=== PATIENT | female | born 1960 | race Hispanic/Latino ===

== ENCOUNTER → 2022-03-07 | Outpatient (CLI) | payer BC ==
[2022-03-07 13:04] LABS: CREATININE 0.8 mg/dL (0.5-1.5); POTASSIUM 3.7 mmol/L (3.5-5.1)
== END | disposition home or self-care (01) ==
LOC: LAB 11:55
PROVIDERS: ATTEND Internal Medicine Cardiovascular Disease
DX: I95.2 Hypotension due to drugs (principal)
CPT/HCPCS: 36415; 80048

== ENCOUNTER → 2023-05-12 | Outpatient (CLI) | payer BC ==
[2023-05-12 15:30] LABS: CREATININE 0.6 mg/dL (0.5-1.5)
== END | disposition home or self-care (01) ==
LOC: LAB 13:30
PROVIDERS: ATTEND Internal Medicine Cardiovascular Disease
DX: I10 Essential (primary) hypertension (principal)
CPT/HCPCS: 36415; 80048

== ENCOUNTER 2024-10-09 06:32 | Observation (INO) | payer BC ==
[2024-10-04 11:59] LABS: BASOPHILS # (AUTO) 0.04 K/uL (0.00-0.20); BASOPHILS % (AUTO) 0.7 % (0.0-5.0); EOSINOPHILS # (AUTO) 0.14 K/uL (0.00-0.70); EOSINOPHILS % (AUTO) 2.5 % (0.0-8.0); HEMATOCRIT 37.9 % (36-48); IMMATURE GRANULOCYTE ABSOLUTE 0.01 K/uL (0-1); LYMPHOCYTES # (AUTO) 2.3 K/uL (1.0-4.8); LYMPHOCYTES % (AUTO) 41.1 % (21.0-51.0); MEAN CORPUSCULAR HEMOGLOBIN 33.2 pg (27.0-33.0); MEAN CORPUSCULAR HGB CONC 33.8 g/dL (32.0-36.0); MEAN CORPUSCULAR VOLUME 98.2 fL (79-99); MONOCYTES # (AUTO) 0.3 K/uL (0.1-1.0); MONOCYTES % (AUTO) 6.1 % (3.0-13.0); NEUTROPHILS # (AUTO) 2.7 K/uL (1.8-7.7); NEUTROPHILS % (AUTO) 49.4 % (40.0-77.0); PLATELET COUNT (AUTO) 233 K/uL (130-400); RED BLOOD CELL COUNT(AUTO) 3.86 MIL/uL (4.00-5.50); WHITE BLOOD COUNT (AUTO) 5.6 K/uL (4.8-10.8)
[2024-10-04 12:02] VITALS: BP 162/74; PULSE 58; RESP 18; TEMP 97.7
[2024-10-04 12:11] LABS: INR 1.17 (0.85-1.15); PROTHROMBIN TIME 12.2 SEC (9.6-11.6)
[2024-10-04 12:12] LABS: PARTIAL THROMBOPLASTIN TIME 27.9 SEC (26.3-35.5)
[2024-10-04 12:15] LABS: ALBUMIN 3.8 g/dL (3.5-5.0); CREATININE 0.7 mg/dL (0.5-1.0); POTASSIUM 4.5 mmol/L (3.5-5.1)
--- NOTE | 2024-10-04 12:30 | NUR ---
RE: IS INITIAL IS INITIAL INSTRUCTIONS PROVIDED TO PATIENT BY CAYDEN NORMAN DURING PREOP.
[2024-10-04 12:51] LABS: APPEARANCE,URINE CLEAR (CLEAR); BILIRUBIN,URINE NEGATIVE (NEGATIVE); COLOR,URINE YELLOW (YELLOW); GLUCOSE, URINE (UA) NEGATIVE (NEGATIVE); KETONES,URINE 5 mg/dL (NEGATIVE); LEUKOCYTE ESTERASE ,URINE 250 Leu/uL (NEGATIVE); NITRATE,URINE NEGATIVE (NEGATIVE); PH,URINE 6.5 (5.0-8.0); PROTEIN,URINE 30 mg/dL (NEGATIVE)
[2024-10-04 12:54] LABS: ADD UA MICROSCOPIC YES
[2024-10-04 13:03] LABS: BACTERIA,URINE RARE /HPF (None Seen); MUCUS,URINE MOD LPF (None Seen); SQUAMOUS EPITHELIAL CELL,UR RARE /HPF (0-2)
--- NOTE | 2024-10-07 09:40 | NUR ---
RE: LABS REPORTED UA/URINE CX RESULTS TO DR FARLEY, NO NEW ORDERS RECEIVED.
[2024-10-09] VITALS (26 sets, daily range): BP systolic 95–142; BP diastolic 53–80; PULSE 49–67; RESP 15–19; TEMP 97.6–99.4; O2SAT 98–99
[~2024-10-09] VITALS: Ht 157.5 cm; Wt 93.9 kg
[~2024-10-09 06:32] MED LIST: ACET-2079 PO; AMIL5TAB8 PO; AMLO-257 PO; DICL75TA5 PO; DULO60CA64 PO; ERGO500093 PO; LEVO100C5 PO; LORA0.5T83 PO; PIND5 PO; PRAV40TA3 PO
[2024-10-09] MEDS ORDERED: ROPivacaine 0.5% 5MG/ML 30ML ONE (07:01)
[2024-10-09] MEDS ORDERED: ketaMINE 50MG/ML SYRINGE 50 MG/ML DISP.SYRIN ONE (07:02)
[2024-10-09] MEDS ORDERED: FENTanyl CITRate PF 50 MCG/1 ML 2ML VIAL ONE (07:24)
[2024-10-09] MEDS ORDERED: proPOFol 10 MG/ML 20ML VIAL IV ONE (07:24)
[2024-10-09] MEDS ORDERED: LIDOCAINE PF 100MG/5ML (2%) SYRINGE 5ML ONE (07:24)
[2024-10-09] MEDS ORDERED: rocuRONium bROMide 10MG/1ML 5ML VL ONE ×2 (07:24→09:52)
[2024-10-09] MEDS: LACTATED RINGERS 1000ML 1,000 ML IV ONE (07:31)
--- NOTE | 2024-10-09 07:36 | EKG ---
[facility] Test Date: 2024-10-09 Test Time: 07:25:43 Pat Name: MELIDA HANNAH Department: [facility] Room: 429 Gender: F [employer]: [id number] : 1960 Requested By: FABI HUNTER Order Number: [id number] Reading MD: Nasrin Wilkins Measurements Intervals [place] Rate: 51 P: 49 [place]: 188 QRS: 12 QRSD: 99 T: 51 QT: 417 QTc: 383 Interpretive Statements Sinus rhythm Compared to ECG 12/24/2015 09:33:28 Sinus bradycardia no longer present Electronically Signed On 10-11-2024 09:32:55 CDT by Nasrin Wilkins Please click the below link to view image of tracing.
[2024-10-09] MEDS: ceFAZolin SODIUM 2 GM VIAL IVPB ONE (08:30)
[2024-10-09] MEDS ORDERED: ondanSETRON 4MG INJ ONE (08:30)
[2024-10-09] MEDS ORDERED: dexaMETHasone SOD PHOSPHATE 10MG/ML 1ML VIAL ONE (08:30)
[2024-10-09] MEDS ORDERED: TRANEXAMIC ACID 1000MG/10ML ONE (08:34)
[2024-10-09] MEDS ORDERED: GLYCOPYRROLATE 0.2 MG/ML 5 ML VIAL ONE (08:44)
[2024-10-09] MEDS ORDERED: NEOSTIGMINE METHYLSULFATE 1MG/ML IV ONE (08:44)
[2024-10-09] MEDS ORDERED: HYDROcodone/APAP 5/325 1 TAB TABLET PO PRN ×2 (09:00→20:00)
[2024-10-09] MEDS ORDERED: FERROUS FUMARATE 324 MG TABLET PO PRN (09:00)
[2024-10-09] MEDS ORDERED: CALCIUM CARB 500MG PO PRN (09:00)
[2024-10-09] MEDS ORDERED: PoTASSium chloRIDE 20MEQ/100ML 100 ML IV PRN (09:00)
[2024-10-09] MEDS ORDERED: ondanSETRON 4MG INJ IVP PRN (09:00)
[2024-10-09] MEDS ORDERED: PoTASSium chl 10% ELIXIR 20MEQ 20 MEQ/15 ML UDCUP PO PRN (09:00)
[2024-10-09] MEDS ORDERED: PoTASSium chloRIDE 20MEQ ER 20 MEQ ERTAB PO PRN (09:00)
[2024-10-09] MEDS: morPHINE 2 MG SYG ONE (11:33)
--- NOTE | 2024-10-09 12:03 | HMCIMG ---
BILATERAL HIP, INCLUDING AP PELVIS, RADIOGRAPHS -4 VIEWS INDICATION: Status post hip surgery comparing right versus left COMPARISON: None FINDINGS: Image is somewhat underexposed, but the radiologic examination is still believed to be of reasonable diagnostic quality. No evidence for fracture or malalignment. Left femoral head is well formed without osteochondral erosion or radiographic evidence for avascular necrosis. Total right hip prosthesis without radiographic evidence for loosening or malalignment.
[2024-10-09] MEDS: FAMOTIDINE 20MG VIAL IV ONE (12:20)
[2024-10-09] MEDS: acetaMINOPHEN 100 ML ONE (12:20)
[2024-10-09] MEDS: ceFAZolin SODIUM 2 GM VIAL ONE (12:20)
[2024-10-09] MEDS: GABApentin 100 MG CAPSULE PO SCH (12:26)
[2024-10-09] MEDS: 0.9%NACL 1000ML 1,000 ML IV SCH (12:36)
[2024-10-09] MEDS: doCUSate SODIUM 100 MG CAP PO SCH (12:38)
[2024-10-09] MEDS: duloXETine HCL 30 MG CAP PO SCH (12:38)
[2024-10-09] MEDS: ketOROlac 15MG/ML VIAL (15MG/ML) IV SCH ×2 (12:38→19:38)
[2024-10-09] MEDS: CYCLOBENZAPRINE HCL 10 MG TABLET PO PRN (12:39)
[2024-10-09] MEDS: polyETHYLene GLYCol 3350 17 GM POWD.PACK PO SCH (12:44)
[2024-10-09] MEDS: AMILoride 5MG TAB PO SCH (12:47)
[2024-10-09] MEDS: PINDOLOL 5 MG TAB PO SCH (12:47)
[2024-10-09] MEDS: amLODIPine 5 MG TAB PO SCH (12:47)
--- NOTE | 2024-10-09 14:00 | NUR ---
Order received and patient evaluated. Patient reports she will be going home, has two steps to enter home. Does not have walker at home. Educated patient to request pain meds with breakfast and lunch if pain >5/10 so that pain is more manageable for PT session. Patient verbalized understanding. Addendum: 10/09/24 at 1647 by MALLIKA LARIOS PT Amended: Links added.
--- NOTE | 2024-10-09 14:15 | NUR ---
ORTHO COORDINATOR: TEACHING REGARDING DVT AND PNEUMONIA PREVENTION, PAIN EXPECTATIONS AND PAIN MANAGEMENT. PATIENT UP TO CHAIR, FAMILY AT BEDSIDE. INCENTIVE SPIROMETER ON BEDSIDE TRAY. B SCD SLEEVES AND MACHINE IN ROOM. PATIENT RETURN DEMONSTRATED PROPER USE OF INCENTIVE SPIROMETER AND FOOT FLEXION/EXTENSION EXERCISES. PATIENT VERBALIZED FREQUENCY OF USE FOR INCENTIVE SPIROMETER, ENCOURAGED HER TO PERFORM MORE OFTEN. PAIN EXPECTATIONS REVIEWED. NUMERICAL PAIN SCALE REVIEWED. PATIENT SHOULD PROVIDE NUMERIC PAIN LEVEL AND TYPE OF PAIN WHEN REQUESTED. CURRENTLY PATIENT'S PAIN IS CONTROLLED. REMINDED HER PAIN MEDICATION MUST BE REQUESTED. ENCOURAGED PATIENT TO SET ALARM FOR EVERY 4 HOURS AND PERFORM A PAIN CHECK. PATIENT VERBALIZED UNDERSTANDING. PATIENT INSTRUCTED WE WILL ASK HER TO SHOWER TOMORROW AND PARTICIPATE IN PHYSICAL THERAPY TWO TIMES PER DAY. SHE IS REQUESTING HOME HEALTH PHYSICAL THERAPY, ENCOURAGED HER TO MOVE AND SIMULATE LIFE AT HOME. PATIENT VERBALIZED UNDERSTANDING. NO ADDITIONAL QUESTIONS/CONCERNS AT THIS TIME.
--- NOTE | 2024-10-09 15:14 | HMCIMG ---
INTRAOPERATIVE FLUOROSCOPIC GUIDANCE UP TO 1 HOUR. IMPRESSION: Intraoperative fluoroscopic guidance was provided for ORIF right total hip arthroplasty, which was performed by Dr. Gill. Total fluoroscopy time was 10.6 seconds, and administered dose, 2.79 mGy. A total of 5 spot images obtained. Please refer to the orthopedic procedure note for further details.
--- NOTE | 2024-10-09 15:44 | OP ---
Operative Note: DATE OF PROCEDURE: 10/09/24 SURGEON: KANA FARLEY MD STAFF NURSE ANESTHETIST: Estevan Moffett and Kallie Weinberg ANESTHESIA: General and fascia iliaca block ANESTHESIOLOGIST/WHITE SUGAR BOILER: Lillian Casillas PREOPERATIVE DIAGNOSIS: Right hip osteoarthritis POSTOPERATIVE DIAGNOSIS: Right hip osteoarthritis PROCEDURE: Right total hip arthroplasty ESTIMATED BLOOD LOSS: 250 cc INDICATIONS: 63-year-old female with right hip osteoarthritis failing conservative management. After discussion of the risks, benefits, and alternatives, the patient voluntarily agreed to undergo the aforementioned procedure. IMPLANTS: Castro and Nephew 50 mm R3 acetabular component with 6.5 mm screws x2 and central hole cover, 0 degree XLPE polyethylene liner, size 4 standard offset anthology stem with a 36 mm Oxinium +0 head DESCRIPTION OF PROCEDURE: Patient was properly identified in the preoperative holding area. Surgical site marking was verified and surgery consent reviewed. The patient was then taken to the operating room and placed in supine position on the OR table. After induction of general anesthesia, preoperative antibiotics were given. The patient was then transitioned in the lateral decubitus position with the right side up. All bony prominences were well-padded. Right lower extremity was then prepped and draped in the usual sterile fashion. Surgical time out was done verifying correct surgery, side, site, and location to be performed. We then began the procedure by making approximately 15 cm long incision centered over the greater trochanter. Here we came sharply through skin down to the fascia. Hemostasis was then achieved using Bovie electrocautery. We then incised fascia in line with the skin incision and finger split the tensor muscle proximally. We then placed our Charnley retractor. At this point we identified the vastus ridge and began elevating the full-thickness soft tissue flap off of the vastus ridge, splitting the vastus lateralis and gluteus muscles as necessary. We then proceeded to externally rotate the femur while making this flap. We resected part of the anterior capsule. The femoral head and neck was then delivered into view. We then dislocated the hip and performed a femoral neck osteotomy approximately half fingerbreadth proximal lesser trochanter. We then placed our retractors around the superior and anterior portion of the acetabulum and began to remove the labrum circumferentially. We then began reaming the acetabulum where we reamed up to a size 49 ensuring appropriate anteversion and abduction. We then proceeded to trial with the size 50 acetabular component and this appeared to sit well. We opened our size 50 acetabular component and after irrigating out the wound malleted this into place. It appeared to have good press-fit however we elected to place two of the 6.5 mm screws as well. We drilled and filled the screws in standard fashion in the posterior superior portion of the cup. We then placed the manhole cover on the center of the cup. The wound was thoroughly irrigated out further and we placed the acetabular liner and impacted this in place in standard fashion. We then proceeded to reposition our retractors to elevate the proximal femur out of the wound. We then used the box chisel and canal finder to began preparing the femoral side and sequentially broached up to the aforementioned size stem. Once we felt we had good fit, fill, and control of the femur with the stem in place we then used our trial head component and reduce the hip. Upon reduction, we had appropriate soft tissue tensioning, limb length and stable range of motion. We therefore dislocated the hip once more removed our trial components thoroughly irrigated the out the wound and placed our final components in standard fashion. The hip was then reduced with the final components in place. It was found to be stable through range of motion with appropriate soft tissue tensioning and appropriate limb length. At this point we placed a bump under the knee and the foot on the male with a stack of towels to allow for internal rotation. We repaired the abductors back to the greater trochanter using #5 Ethibond. We then repaired the rent in the vastus lateralis and gluteus muscles using #1 Vicryl in a running fashion. We removed our Charnley retractor and began to repair the IT band using #1 Vicryl in interrupted [id number] fashion. At this point we began to close her subcutaneous tissue using 2-0 Vicryl. Running 3-0 Monocryl in subcuticular fashion with Dermabond placed over this for the skin. Island barrier dressing was then applied. Patient was returned to supine position with abduction pillow placed, awakened from anesthesia, and taken to the recovery room in stable condition. KANA FARLEY MD Oct 09, 2024 15:44
[2024-10-09] MEDS: ceFAZolin SODIUM 2 GM VIAL IVP SCH (16:07)
--- NOTE | 2024-10-09 16:59 | NUR ---
[facility] CM MET WITH PT, DAUGHTER, AND SPOUSE THIS AFTERNOON, INITIAL ASSESSMENT DONE. PATIENT IS INDEPENDENT PRIOR TO SURGERY, LIVES AT HOME WITH HER , PT VERBALIZED SHE WILL BE GOING HOME WITH HER DAUGHTER TEMPORARILY AFTER. DENIES ANY EQUIPMENT/SERVICES. FEELS SAFE TO GO BACK HOME, SPOUSE AND DAUGHTER ABLE TO ASSIST WITH TRANSPORTATION AND NEEDS NECESSARY. DISCUSSED MD RECOMMENDATIONS FOR HH AND WILL NEED DME LIANA [facility]ING AGREEABLE, CONSENT SIGNED KENDELL FOR [facility] AND [facility]. [facility] [place] ONCE APPROVED FOR HH AND DME DELIVERED. CM TO CONTINUE TO FOLLOW UP. Addendum: 10/09/24 at 1701 by BHUPINDER MEHTA LVN Amended: Links added.
--- NOTE | 2024-10-09 17:01 | NUR ---
CM NOTE: [facility] JJ WALKER CM SPOKE TO KARLA WITH [facility] THIS AFTERNOON, STATED PT STILL HAS A DEDUCTIBLE OF $5000 THAT HAS NOT BEEN MET, INFORMED KARLA PT JUST HAD SURGERY TODAY MUST HAVE PAID DEDUCTIBLE ALREADY, PER REP CANNOT TELL IF IT IS IT IS STILL SHOWING A CURRENT AMOUNT DUE. CM INFORMED REP WILL VERIFY WITH PT IF DEDUCTIBLE BEEN PAID. PER REP THEY HAVE A WALKER HE CAN GIVE TO PT TODAY AT NO COST IF FAMILY ABLE TO PICKING MACHINE OPERATOR HELPER TODAY BEFORE 5PM. INFORMED REP WILL HAVE FAMILY PICKING MACHINE OPERATOR HELPER WALKER. CM MET WITH PT, SPOUSE, AND DAUGHTER. MADE AWARE OF ABOVE. PER PT SHE ALREADY PAID HER DEDUCTIBLE AT DR FARLEY'S OFFICE PRIOR TO SURGERY. INSTRUCTED DAUGHTER TO PICKING MACHINE OPERATOR HELPER A WALKER FROM [facility] THAT KARLA WILL GIVE TO PATIENT TODAY BEFORE 5PM. DAUGHTER AGREEABLE AND LEFT TO PICKING MACHINE OPERATOR HELPER WALKER AT [facility] CM TO CONTINUE TO FOLLOW UP.
--- NOTE | 2024-10-09 17:11 | NUR ---
CM NOTE: [facility] APPROVAL CM SPOKE TO TIMI Gaspar/HILLARY RUFF, PT HAS APPROVAL TOMORROW, WILL SCHEDULE A VISIT WITH PT DAY AFTER D/C. DR FARLEY UPDATED. PT SAFE TO DC HOME TOMORROW ONCE MD CLEARED. CM TO CONTINUE TO FOLLOW UP.
[2024-10-09] MEDS: traMADol HCL 50 MG TABLET PO PRN (18:47)
--- NOTE | 2024-10-09 19:35 | NUR ---
CALLED PHARMACY TO CONFIRM THE NORCO ORDERS PLACED BY DR. FARLEY. PER PHARMACIST THEY WILL NO LONGER ACCEPT NORCO ORDERS WITH COMMENTS ON GIVING TWO SEPARATE DOSAGES FOR PAIN SCALES. NORCO ORDERS WILL HAVE TO BE PLACED SEPARATELY FOR RESPECTABLE PAIN LEVELS. ORDERS FOR NORCO 5MG FOR PAIN SCALE OF 4-6 AND NORCO 10MG FOR PAIN SCALE OF 7-10 PLACED SEPARATELY.
[2024-10-09] MEDS: atorVAStatin 10 MG TABLET PO SCH (19:39)
[2024-10-09] MEDS: HYDROcodone/APAP 5/325 1 TAB TABLET PO PRN (20:09)
[2024-10-10 03:23] VITALS: BP 97/67; PULSE 66; RESP 18; TEMP 98.7
[2024-10-10 03:41] LABS: HEMATOCRIT 28.5 % (36-48); MEAN CORPUSCULAR HEMOGLOBIN 33.8 pg (27.0-33.0); MEAN CORPUSCULAR VOLUME 99.3 fL (79-99); RED BLOOD CELL COUNT(AUTO) 2.87 MIL/uL (4.00-5.50); WHITE BLOOD COUNT (AUTO) 9.8 K/uL (4.8-10.8)
[2024-10-10 04:08] LABS: POTASSIUM 3.6 mmol/L (3.5-5.1)
[2024-10-10] MEDS: levoTHYROxine 100 MCG TABLET PO SCH (06:12)
[2024-10-10 08:00] VITALS: BP 106/60; PULSE 79; RESP 18; TEMP 98.3; O2SAT 96
--- NOTE | 2024-10-10 08:01 | PN ---
Ortho postop day one. This morning the patient is awake alert and oriented. She is in good spirits and eager to leave. She is surrounded by multiple family members. Reports minimal pain. Vital signs have remained stable. She is afebrile. Voiding on her own without difficulty. She is passing gas but yet to have a BM. She does admit that she goes a couple of days before having a BM but she does have lactulose available to her that was prescribed by PCP. Laboratory results reviewed. Noted to have a drop in hemoglobin and hematocrit as expected after total hip arthroplasty. Patient is asymptomatic and we will address per protocol as necessary. Reinforced incentive spirometry. Currently has the SCD stockings present but are not on. Ice is present to operative site. Dressing is intact. Distal neurovascular exam intact. Negative Homans. She ambulated yesterday down the hallway with physical therapy and has been ambulating to the bathroom on her own. She already has [facility] home health approval. Pending physical therapy this morning. Assessment: Status post right total hip arthroplasty. Asymptomatic acute postoperative blood loss anemia. Plan: Continue with Dr. Gill's total hip arthroplasty protocol and discharge planning. Asymptomatic acute postoperative blood loss anemia addressed with the protocol as necessary. Vitals/Labs Vital Signs Date Time Temp Pulse Resp B/P (MAP) Pulse Ox O2 Delivery O2 Flow Rate FiO2 10/10/24 03:23 98.8 66 18 97/67 98 Room Air 21 10/09/24 19:00 0 Laboratory Tests 10/10/24 03:22 Medications Current Medications Acetaminophen 100 ml @ As Directed STK-MED ONCE .ROUTE; Start 10/09/24 at 06:59; Stop 10/09/24 at 07:05; Status DC Famotidine 20 mg STK-MED ONCE IV; Start 10/09/24 at 06:59; Stop 10/09/24 at 07:05; Status DC Ropivacaine 150 mg STK-MED ONCE .ROUTE; Start 10/09/24 at 07:01; Stop 10/09/24 at 07:05; Status DC Ketamine HCl 50 mg STK-MED ONCE .ROUTE; Start 10/09/24 at 07:02; Stop 10/09/24 at 07:05; Status DC Cefazolin Sodium 2 gm STK-MED ONCE .ROUTE; Start 10/09/24 at 07:16; Stop 4/16/25 at 07:16; Status DC Lactated Ringer's 1,000 ml @ As Directed STK-MED ONCE IV Last administered on 10/09/24at 07:31; Start 10/09/24 at 07:16; Stop 10/09/24 at 07:16; Status DC Lidocaine HCl 100 mg STK-MED ONCE .ROUTE; Start 10/09/24 at 07:24; Stop 10/09/24 at 07:29; Status DC Propofol 200 mg STK-MED ONCE IV; Start 10/09/24 at 07:24; Stop 10/09/24 at 07:29; Status DC Rocuronium [place] 50 mg STK-MED ONCE .ROUTE; Start 10/09/24 at 07:24; Stop 10/09/24 at 07:29; Status DC Fentanyl Citrate 100 mcg STK-MED ONCE .ROUTE; Start 10/09/24 at 07:24; Stop 10/09/24 at 07:29; Status DC Ondansetron HCl 4 mg STK-MED ONCE .ROUTE; Start 10/09/24 at 08:30; Stop 10/09/24 at 08:30; Status DC Dexamethasone Sodium Phosphate 10 mg STK-MED ONCE .ROUTE; Start 10/09/24 at 08:30; Stop 10/09/24 at 08:30; Status DC Tranexamic Acid 1,000 mg STK-MED ONCE .ROUTE; Start 10/09/24 at 08:34; Stop 10/09/24 at 08:34; Status DC Sodium Chloride 1,000 ml @ 100 mls/hr Q10H IV Last administered on 10/09/24at 12:36; Start 10/09/24 at 09:00; Stop 10/10/24 at 08:59 Polyethylene Glycol 17 gm DAILY PO; Start 10/09/24 at 09:00; Stop 11/08/24 at 08:59 Bisacodyl 10 mg DAILY PRN RC; Start 10/12/24 at 09:00; Stop 11/11/24 at 08:59 Ketorolac Tromethamine 15 mg Q6H PRN IV; Start 10/10/24 at 09:00; Stop 10/15/24 at 08:59 Ferrous Fumarate 324 mg DAILY PRN PO; Start 10/09/24 at 09:00; Stop 11/08/24 at 08:59 Calcium Carbonate 500 mg Q12H PRN PO; Start 10/09/24 at 09:00; Stop 11/08/24 at 08:59 Ondansetron HCl 4 mg Q6H PRN IVP; Start 10/09/24 at 09:00; Stop 11/08/24 at 08:59 Cefazolin Sodium 2 gm Q8H IVP Last administered on 10/10/24at 00:31; Start 10/09/24 at 16:30; Stop 10/10/24 at 00:31; Status DC Gabapentin 100 mg TID PO Last administered on 10/09/24at 19:39; Start 10/09/24 at 09:00; Stop 11/08/24 at 08:59 Cyclobenzaprine HCl 5 mg Q8H PRN PO Last administered on 10/09/24at 20:09; Start 10/09/24 at 09:00; Stop 11/08/24 at 08:59 Docusate Sodium 100 mg BID PO Last administered on 10/09/24at 19:39; Start 10/09/24 at 09:00; Stop 11/08/24 at 08:59 Ketorolac Tromethamine 15 mg Q8H IV Last administered on 10/09/24at 12:38; Start 10/09/24 at 09:00; Stop 10/09/24 at 16:10; Status DC Aspirin 325 mg DAILY PO; Start 10/10/24 at 09:00; Stop 11/09/24 at 08:59 Potassium Chloride 100 ml @ 100 mls/hr AD PRN IV; Start 10/09/24 at 09:00; Stop 11/08/24 at 08:59 Potassium Chloride 20 meq AD PRN PO; Start 10/09/24 at 09:00; Stop 11/08/24 at 08:59 Potassium Chloride 20 meq AD PRN PO; Start 10/09/24 at 09:00; Stop 11/08/24 at 08:59 Tramadol HCl 50 mg Q6H PRN PO Last administered on 10/10/24at 02:52; Start 10/09/24 at 09:00; Stop 10/14/24 at 08:59 Acetaminophen/ Hydrocodone Bitart Q4H PRN PO; Start 10/09/24 at 09:00; Stop 10/09/24 at 08:55; Status DC Amiloride HCl 5 mg DAILY PO; Start 10/09/24 at 09:00; Stop 11/08/24 at 08:59 Amlodipine Besylate 5 mg DAILY PO; Start 10/09/24 at 09:00; Stop 11/08/24 at 08:59 Pindolol 5 mg DAILY PO; Start 10/09/24 at 09:00; Stop 11/08/24 at 08:59 Duloxetine HCl 60 mg DAILY PO; Start 10/09/24 at 09:00; Stop 11/08/24 at 08:59 Levothyroxine Sodium 100 mcg SYN PO Last administered on 10/10/24at 06:12; Start 10/10/24 at 06:30; Stop 11/09/24 at 06:29 Atorvastatin Calcium 10 mg HS PO Last administered on 10/09/24at 19:39; Start 10/09/24 at 21:00; Stop 11/08/24 at 20:59 Glycopyrrolate 1 mg STK-MED ONCE .ROUTE; Start 10/09/24 at 08:44; Stop 10/09/24 at 08:44; Status DC Neostigmine Methylsulfate 10 mg STK-MED ONCE IV; Start 10/09/24 at 08:44; Stop 10/09/24 at 08:44; Status DC Rocuronium [place] 50 mg STK-MED ONCE .ROUTE; Start 10/09/24 at 09:52; Stop 10/09/24 at 09:52; Status DC Cefazolin Sodium 2 gm STK-MED ONCE IVPB Last administered on 10/09/24at 08:30; Start 10/09/24 at 08:30; Stop 10/09/24 at 10:57; Status DC Tranexamic Acid 1,000 mg STK-MED ONCE IV Last administered on 10/09/24at 08:45; Start 10/09/24 at 08:45; Stop 10/09/24 at 10:57; Status DC Tranexamic Acid 1,000 mg STK-MED ONCE IV Last administered on 10/09/24at 10:08; Start 10/09/24 at 10:08; Stop 10/09/24 at 10:57; Status DC Morphine Sulfate 2 mg STK-MED ONCE .ROUTE Last administered on 10/09/24at 11:33; Start 10/09/24 at 11:28; Stop 10/09/24 at 11:28; Status DC Ketorolac Tromethamine 15 mg Q8H IV Last administered on 10/10/24at 04:28; Start 10/09/24 at 20:30; Stop 10/10/24 at 04:31; Status DC Acetaminophen/ Hydrocodone Bitart 1 tab Q4H PRN PO; Start 10/09/24 at 20:00; Stop 10/14/24 at 19:59 Acetaminophen/ Hydrocodone Bitart 2 tab Q4H PRN PO Last administered on 10/09/24at 20:09; Start 10/09/24 at 20:00; Stop 10/14/24 at 19:59 PACO CALERO NP Oct 10, 2024 08:01
[2024-10-10] MEDS ORDERED: DOCU-116 PO (08:42)
[2024-10-10] MEDS ORDERED: GABA100C PO (08:42)
[2024-10-10] MEDS ORDERED: CYCL-309 PO (08:42)
[2024-10-10] MEDS ORDERED: ASPI-891 PO (08:42)
[2024-10-10] MEDS ORDERED: MAGN400O17 PO (08:42)
[2024-10-10] MEDS ORDERED: HYDR-4060 PO (08:42)
[2024-10-10] MEDS ORDERED: ketOROlac 15MG/ML VIAL (15MG/ML) IV PRN (09:00)
[2024-10-10] MEDS: ASPIRIN 325MG EC TAB PO SCH (09:25)
--- NOTE | 2024-10-10 10:15 | NUR ---
DISCHARGE DISCHARGE ORDERS FOR PATIENT TO BE DISCHARGED HOME WITH [facility]. DISCHARGE INSTRUCTIONS AND DOCUMENTATION GIVEN TO PATIENT AND DAUGHTER'S AT BEDSIDE. VOICED UNDERSTANDING. IV DISCONTINUED, CATHETER INTACT, NO S/S OF INFECTION NOTED. PATIENT TOLERATED WELL. BANDS REMOVED PRIOR TO DISCHARGE. PENDING TRANSPORTATION.
--- NOTE | 2024-10-10 10:28 | NUR ---
DISCHARGE REPORT CALLED IN TO [facility], SPOKE WITH STELLA PEREZ AND PROVIDED REPORT ON PATIENT'S CONDITION AND MD'S ORDERS. VOICED UNDERSTANDING. PATIENT LEFT VIA WHEELCHAIR, ACCOMPANIED BY DAUGHTERS. NO S/S OF DISTRESS NOTED.
[2024-10-12] MEDS ORDERED: BisaCODYL 10 MG SUPP.RECT RC PRN (09:00)
== END 2024-10-10 10:30 | disposition home health service (06) ==
LOC: DAH 06:32 → DAHIP 06:33 → 4AH 12:10
PROVIDERS: ADMIT Student in an Organized Health Care Education/Training Program; ATTEND Student in an Organized Health Care Education/Training Program
DX: M16.11 Unilateral primary osteoarthritis, right hip (principal); G89.18 Other acute postprocedural pain; D62 Acute posthemorrhagic anemia; I10 Essential (primary) hypertension; E78.5 Hyperlipidemia, unspecified; E03.9 Hypothyroidism, unspecified; F41.9 Anxiety disorder, unspecified; F32.A Depression, unspecified; F17.210 Nicotine dependence, cigarettes, uncomplicated; Z90.49 Acquired absence of other specified parts of digestive tract; Z79.899 Other long term (current) drug therapy
CPT/HCPCS: 82040; 80048 ×2; 85025; 85610; 85730; 87086; 84134; 86140; 81001; 36415 ×2; 87641; 27130; 96376 ×2; 96365; 96375; 64447; 82948; 73503; 73521; 97161; 97116; 93005; 96366; 85027; G0378 ×21; A4663; C1776; J7120; J3490 ×8; J3010; J1100; J2270; J2003; J2704; J2405; J2710; J2795; J1885 ×3; J0690 ×4; A4649 ×2; A4930; A6255; A4215; A4223 ×2; A4213; A4222; A4221; A4216